=== PATIENT | female | born 1990 | race Two or more races ===

== ENCOUNTER → 2023-10-30 | Outpatient (CLI) | payer OTHER ==
[~2023-10-30] MED LIST: CHILDREN'S ASPI81 MG PO; PRENATABS RX T1 EACH PO
[2023-10-30 17:51] LABS: URINE APPEARANCE Clear; URINE BILIRRUBIN Negative (NEGATIVE); URINE BLOOD Negative; URINE COLOR Dark Yellow; URINE GLUCOSE Negative (NEGATIVE); URINE LEUKOCYTE Negative; URINE NITRATE Negative; URINE PROTEIN 30 (NEGATIVE)
[2023-10-30 17:55] LABS: URINE BACTERIA 235.6 uL (0.0-1933); URINE EPITHELIAL CELLS 17.7 uL (0.0-38.8)
== END | disposition home or self-care (01) ==
LOC: OBS/DEL 16:57
PROVIDERS: Student in an Organized Health Care Education/Training Program; ATTEND Specialist
DX: O26.893 Other specified pregnancy related conditions, third trimester (principal); Z3A.28 28 weeks gestation of pregnancy; N76.0 Acute vaginitis

== ENCOUNTER 2023-11-04 22:24 | Outpatient (CLI) | payer OTHER ==
[~2023-11-04] VITALS: Ht 149.9 cm; Wt 83.5 kg
[2023-11-04] MEDS ORDERED: 0.9 % SODIUM CHLORIDE 1,000 ML IV SCH (22:30)
[2023-11-04 23:12] LABS: HEMATOCRIT 35.5 % (36.0-45.00); HEMOGLOBIN 11.9 g/dL (12.0-15.00); MEAN CELL VOLUME 85.1 fL (80.00-100.00); MEAN CORPUSCULAR HEMOGLOBIN 28.6 pg (27.00-32.0); MEAN CORPUSCULAR HGB CONC 33.6 g/dl (32.0-36.0); PLATELET COUNT 213 K/uL (150-450); RED BLOOD COUNT 4.16 M/uL (4.00-6.00)
[2023-11-04 23:18] LABS: PH,URINE 6.5 (5.0-8.0); URINE APPEARANCE Clear; URINE BILIRRUBIN Negative (NEGATIVE); URINE BLOOD Negative; URINE COLOR Yellow; URINE GLUCOSE Negative (NEGATIVE); URINE LEUKOCYTE Negative; URINE NITRATE Negative; URINE PROTEIN Negative (NEGATIVE); URINE UROBILINOGEN 0.2 E.U./dl
[2023-11-04 23:22] LABS: URINE BACTERIA 20.1 uL (0.0-1933); URINE WBC 2.6 uL (0.0-23.2)
[2023-11-04 23:32] LABS: INR 0.94; PARTIAL THROMBOPLASTIN TIME 30.1 SECONDS (22.0-34.0); PROTHROMBIN TIME 9.9 SECONDS (9.0-11.5)
[2023-11-04 23:35] LABS: ALBUMIN 2.9 gm/dL (3.4-5.0); BILIRUBIN TOTAL 0.4 mg/dL (0.3-1.2); CALCIUM 8.4 mg/dL (8.5-10.1); CREATININE SERUM 0.53 mg/dL (0.55-1.02); GFR 131.27; GLOBULINA 3.6 G/DL (2.4-3.5); POTASSIUM 3.54 mEq/L (3.5-5.1); TOTAL PROTEIN 6.5 gm/dL (6.4-8.2)
[2023-11-05] MEDS ORDERED: OSELTAMIVIR PHOSPHATE 75 MG CAPSULE PO SCH (00:01)
[2023-11-06 00:18] LABS: CREATININE URINE 55.4 MG/DL; URINE PROT QUANT 24HR 35.1 MG/DL
== END 2023-11-06 02:25 | disposition home or self-care (01) ==
LOC: OBS/DEL 22:24
PROVIDERS: ATTEND Specialist
DX: O14.93 Unspecified pre-eclampsia, third trimester (principal); O09.523 Supervision of elderly multigravida, third trimester; Z3A.29 29 weeks gestation of pregnancy